=== PATIENT | female | born 1945 | race Caucasian/White ===

== ENCOUNTER 2018-03-22 16:37 | Observation (INO) | payer OTHER, MEDICARE ==
[~2018-03-22] VITALS: Ht 162.6 cm; Wt 71.0 kg
[~2018-03-22 16:37] MED LIST: ASPIRIN E.C.81 M2 PO; AUGMENTIN875 MG PO; BACTRIM,SEPT1 TABLET PO; CARDIZEM CD240 MG PO; CRESTOR40 MG PO; Detrol LA PO; HYDROCODON-ACE1 EAC7 PO; K-DUR10 MEQ PO; KEFLEX500 MG PO; LORTAB 5-325 M1 EACH PO; Paxil PO; Pradaxa PO; REQUIP0.5 MG PO; REQUIP5 MG PO; SYNTHROID50 MCG PO; TRIAMTERENE/HC1 EACH PO; Tums PO; ULTRAM50 MG PO
[2018-03-22 18:29] LABS: HEMATOCRIT 43.1 % (36.0-46.0); HEMOGLOBIN 14.3 G/DL (11.9-15.5); MCH 32.2 PG (29.0-34.0); MCHC 33.2 G/DL (30.0-36.0); MCV 97.1 FL (83-99); PLATELET COUNT 204 K/uL (156-360); RBC DIS.WIDTH-SD 46.5 % (39-53); RED BLOOD COUNT 4.44 M/uL (3.80-5.20); WHITE BLOOD COUNT 5.1 K/uL (4.1-10.2)
[2018-03-22 18:31] LABS: APPEARANCE CLEAR ((CLEAR)); BILIRUBIN NEGATIVE; BLOOD NEGATIVE; COLOR YELLOW ((YELLOW)); GLUCOSE (STRIP) NEGATIVE; KETONES NEGATIVE; LEUKOCYTES NEGATIVE; NITRITE NEGATIVE; PROTEIN (STRIP) NEGATIVE; SPECIFIC GRAVITY 1.017 (1.000-1.030); UCUL ADDED? NO; UROBILINOGEN 0.2 MG/DL (0.2-1.0)
[2018-03-22 18:42] LABS: ALBUMIN 4.4 g/dL (3.2-4.8); CHLORIDE 105 mEq/L (99-109); SODIUM 141 mEq/L (136-147)
[2018-03-22 18:44] LABS: GLUCOSE 104 mg/dL (70-99); TOTAL PROTEIN 7.3 g/dL (6.4-8.3)
[2018-03-22 18:46] LABS: TOTAL BILIRUBIN 0.4 mg/dL (0.0-1.0)
[2018-03-22 18:48] LABS: ALKALINE PHOSPHATASE 95 IU/L (3-129); CREATININE 1.1 mg/dL (0.6-1.3); GFR ESTIMATE (CALCULATED) 52 mL/min/
[2018-03-22 18:49] LABS: AST (GOT) 38 IU/L (2-34); UREA NITROGEN (BUN) 24 mg/dL (9-23)
[2018-03-22 18:51] LABS: ALT (GPT) 36 IU/L (3-49)
[2018-03-22 18:53] LABS: TROP-I INTERPRETATION NEGATIVE; TROPONIN-I < 0.01 ng/mL (0.0-0.30)
[2018-03-22] MEDS ORDERED: MYRBETRIQ25 MG PO (19:12)
[2018-03-22] MEDS ORDERED: PAROXETINE HCL20 MG PO (19:13)
[2018-03-22] MEDS ORDERED: ELIQUIS5 MG PO (19:13)
[2018-03-22] MEDS ORDERED: AMOXICILLIN500 MG PO (19:14)
[2018-03-22] MEDS ORDERED: METOCLOPRAMIDE10 MG PO (19:16)
[2018-03-22] MEDS ORDERED: NEURONTIN100 MG PO (19:16)
[2018-03-22] MEDS ORDERED: VITAMIN D31000 UNIT PO (19:55)
[2018-03-22] MEDS ORDERED: HYDROCODON-ACE1 EAC8 PO (19:56)
[2018-03-22] MEDS ORDERED: PROAIR HFA8.5 GM IH (19:57)
[2018-03-22] MEDS ORDERED: FLAGYL500 MG PO (19:57)
[2018-03-22] MEDS ORDERED: SYMBICORT60 INHALAT IH (19:57)
[2018-03-22 21:41] LABS: HDL CHOLESTEROL 75 MG/DL (Desirable>=50); LDL CHOLESTEROL 58 mg/dL (Desirable<100); NON-HDL CHOLESTEROL 72 mg/dL (Desirable<160); TOTAL CHOLESTEROL 147 mg/dL (Desirable<200); TRIGLYCERIDES 69 MG/DL (Normal: <150)
[2018-03-22 22:42] VITALS: BP 154/95
[2018-03-23 04:19] VITALS: BP 133/90
[2018-03-23 07:12] VITALS: BP 144/86
[2018-03-23 11:02] VITALS: BP 156/86
[2018-03-23 12:30] LABS: HEMOGLOBIN A1c (GLYCOHEMOGLOB) 6.1 % (Below 5.7)
[2018-03-23] MEDS ORDERED: ASPIR 8181 M1 PO (13:38)
[2018-03-23 15:24] VITALS: BP 134/73
== END 2018-03-23 20:21 | disposition home or self-care (01) ==
LOC: EME 16:37 → EDOF 20:34 → 4SOUTH 20:34 → EDOF 20:34 → ENRESERV 20:39 → 4SOUTH 21:50
PROVIDERS: Hospitalist; Physician Assistant Medical
PROC: B246ZZZ Ultrasonography of Right and Left Heart (ICD-10-PCS; principal; 2018-03-23)
DX: G45.9 Transient cerebral ischemic attack, unspecified (principal); I48.91 Unspecified atrial fibrillation; I65.23 Occlusion and stenosis of bilateral carotid arteries; Z79.01 Long term (current) use of anticoagulants; I10 Essential (primary) hypertension; E78.5 Hyperlipidemia, unspecified; J44.9 Chronic obstructive pulmonary disease, unspecified; Z87.891 Personal history of nicotine dependence; G25.81 Restless legs syndrome; Z90.710 Acquired absence of both cervix and uterus; Z82.3 Family history of stroke; Z66 Do not resuscitate
CPT/HCPCS: 70450; 70551; 71045; 80053; 80061; 81003; 83036; 84484; 85027; 93005; 93306; 93880; 94640; 94799; 99281; 99285; G0378